=== PATIENT | female | born 1985 | race Caucasian/White ===

== ENCOUNTER 2020-12-08 23:18 | Emergency (ER) | payer OTHER ==
[2020-12-09 00:50] LABS: BASOPHIL 0.4 % (0-2); EOSINOPHIL 1.2 % (0-5); HCT 33.1 % (37.0-47.0); HGB 11.3 g/dl (12.5-16.0); LYMPHOCYTE 16.1 % (15-48); MCHC 34.1 g/dL (32.0-36.0); MCV 84.9 fL (78.0-100.0); MONOCYTE 7.2 % (0-12); MPV 9.3 fL (6.0-9.5); NEUTROPHIL 74.9 % (41-80); NRBC 0; PLT 258 K/uL (150-400); RDW 14.6 % (11.5-14.0); WBC 10.3 K/uL (4.0-10.5)
[2020-12-09 01:06] LABS: BILIRUBIN - TOTAL 0.3 mg/dL (0.2-1.0); BUN/CREAT RATIO (CALC) 14.3 RATIO; CREATININE 0.7 mg/dL (0.51-0.95); GLOBULIN (CALCULATION) 3.6 g/dL; POTASSIUM 3.6 mmol/L (3.5-5.1); TOTAL PROTEIN 6.6 g/dL (6.4-8.2)
[2020-12-09 01:59] LABS: BILIRUBIN NEGATIVE (NEGATIVE); BLOOD NEGATIVE Ery/uL (NEGATIVE); CLARITY CLEAR (CLEAR); COLOR YELLOW (YELLOW); GLUCOSE (U) NORMAL (NORMAL); LEUKOCYTES NEGATIVE Leu/uL (NEGATIVE); NITRITE NEGATIVE (NEGATIVE); PROTEIN NEGATIVE (NEGATIVE); SPECIFIC GRAVITY <=1.005 (1.001-1.030); UROBILINOGEN 0.2 mg/dL (0.2-1.0)
== END 2020-12-09 02:33 | disposition home or self-care (01) ==
LOC: FER 23:18
PROVIDERS: Emergency Medicine Emergency Medical Services
DX: O9A.212 Injury, poisoning and certain other consequences of external causes complicating pregnancy, second trimester (principal); S80.02XA Contusion of left knee, initial encounter; S20.314A Abrasion of middle front wall of thorax, initial encounter; S30.811A Abrasion of abdominal wall, initial encounter; S39.91XA Unspecified injury of abdomen, initial encounter; Z3A.16 16 weeks gestation of pregnancy; V40.5XXA Car driver injured in collision with pedestrian or animal in traffic accident, initial encounter; Y92.410 Unspecified street and highway as the place of occurrence of the external cause
CPT/HCPCS: 36415; 76805; 80053; 81003; 82150; 83605; 83690; 84702; 85025; 86900; 86901; 93005; J7030

== ENCOUNTER 2021-05-17 05:38 | Inpatient (IN) | payer OTHER ==
[~2021-05-17] VITALS: Ht 152.4 cm; Wt 77.6 kg
[2021-05-17 06:28] LABS: HCT 34.3 % (37.0-47.0); HGB 11.9 g/dl (12.5-16.0); MCH 29.2 pg (25.0-31.0); MCHC 34.7 g/dL (32.0-36.0); MCV 84.1 fL (78.0-100.0); MPV 9.8 fL (6.0-9.5); RBC 4.08 M/uL (4.20-5.40); RDW 15.2 % (11.5-14.0); WBC 7.7 K/uL (4.0-10.5)
[2021-05-17 06:30] LABS: BILIRUBIN NEGATIVE (NEGATIVE); BLOOD NEGATIVE Ery/uL (NEGATIVE); CLARITY CLEAR (CLEAR); COLOR YELLOW (YELLOW); GLUCOSE (U) NORMAL (NORMAL); LEUKOCYTES NEGATIVE Leu/uL (NEGATIVE); NITRITE NEGATIVE (NEGATIVE); PROTEIN NEGATIVE (NEGATIVE); SPECIFIC GRAVITY 1.025 (1.001-1.030); UROBILINOGEN 0.2 mg/dL (0.2-1.0); pH 5.5 (5.0-9.0)
[2021-05-17 06:57] LABS: ALBUMIN 2.9 g/dL (3.4-5.0); BILIRUBIN - TOTAL 0.4 mg/dL (0.2-1.0); BUN/CREAT RATIO (CALC) 11.9 RATIO; CREATININE 0.67 mg/dL (0.51-0.95); GLOBULIN (CALCULATION) 3.8 g/dL; POTASSIUM 3.7 mmol/L (3.5-5.1); TOTAL PROTEIN 6.7 g/dL (6.4-8.2)
[2021-05-17 09:37] LABS: BILIRUBIN NEGATIVE (NEGATIVE); BLOOD NEGATIVE Ery/uL (NEGATIVE); CLARITY CLEAR (CLEAR); COLOR YELLOW (YELLOW); GLUCOSE (U) NORMAL (NORMAL); LEUKOCYTES NEGATIVE Leu/uL (NEGATIVE); NITRITE NEGATIVE (NEGATIVE); PROTEIN NEGATIVE (NEGATIVE); UROBILINOGEN 0.2 mg/dL (0.2-1.0); pH 6.5 (5.0-9.0)
[2021-05-18 06:38] LABS: HCT 28.3 % (37.0-47.0); HGB 9.6 g/dl (12.5-16.0); MCH 29.2 pg (25.0-31.0); MCHC 33.9 g/dL (32.0-36.0); MPV 9.4 fL (6.0-9.5); RBC 3.29 M/uL (4.20-5.40); RDW 15.6 % (11.5-14.0); WBC 11.7 K/uL (4.0-10.5)
== END 2021-05-19 10:20 | disposition home or self-care (01) | DRG 787 ==
LOC: FOB 05:38
PROVIDERS: ADMIT Specialist
PROC: 10D00Z1 Extraction of Products of Conception, Low, Open Approach (ICD-10-PCS; principal; 2021-05-17 07:30)
DX: O34.211 Maternal care for low transverse scar from previous cesarean delivery (principal); D62 Acute posthemorrhagic anemia; O99.214 Obesity complicating childbirth; Z20.822 Contact with and (suspected) exposure to COVID-19; Z37.0 Single live birth; Z3A.39 39 weeks gestation of pregnancy; O99.02 Anemia complicating childbirth; D50.9 Iron deficiency anemia, unspecified
CPT/HCPCS: 36415; 80053; 81003; 86850; 86900; 86901; J0690; J1100; J1200; J1885; J2274; J2405; J2590; J2916; J7120